=== PATIENT | female | born 1955 | race Caucasian/White ===

== ENCOUNTER 2016-06-19 15:42 | Emergency (ER) | payer BC ==
[2016-06-19 15:49] VITALS: BP 145/95; PULSE 68; TEMP 98.6; BMI 25.5
[2016-06-19] MEDS ORDERED: IBUPROFEN 600 MG TABLET (FP) PO ONE ×2 (16:09→16:12)
--- NOTE | 2016-06-19 16:09 | PDOC ---
History of Present Illness - General Chief Complaint: Pain, Acute Stated Complaint: RIGHT FOOT PAIN Time Seen by Provider: 06/19/16 15:51 - History of Present Illness Initial Comments: 06/19/16 16:21 Chief complaint: Pain right foot History of present illness: Patient inverted right foot approximately one week ago, sustaining injury. There was pain and swelling. She did not seek medical attention. She continued to ambulate. The ankle has not improved so today she went to urgent care. An x-ray was performed, demonstrating a fracture, and she was referred to the emergency room Review of systems: Denies distal numbness tingling pain or weakness. Denies pain or injury to the ankle calf the thigh or hip. Denies any other injuries Past medical history: Healthy female, no current medical problems Social/family history reviewed and noncontributory Physical exam: Alert and oriented well-developed well-nourished no acute distress ambulatory but limping, cheerful and cooperative Right foot shows swelling and tenderness over the fifth metatarsal. There is pain with inversion of the foot. Pulses are full. No distal sensory or motor deficits. No swelling pain or tenderness of the ankle calf or knee. Impression: Fifth metatarsal fracture Plan: X-ray was reviewed from the urgent care center. There is an oblique fracture of the diaphysis of the fifth metatarsal. Minimal displacement. Non- angulated. The x-ray was reviewed with Dr. Langston, orthopedic consult. He agrees to see the patient now in his office for definitive management. The patient is adequately ambulatory and in no severe pain or discomfort upon discharge with family member to be seen by orthopedist now as arranged. Past History - Past Medical History Allergies/Adverse Reactions: Allergies Allergy/AdvReac Type Severity Reaction Status Date / Time No Known Allergies Allergy Verified 06/19/16 15:50 Home Medications: Ambulatory Orders No Home Medications 0 dose .ROUTE UTDICT 07/06/12 Naproxen [EC-Naprosyn] 375 mg PO BID PRN #20 tablet. 06/19/16 Asthma: Yes Suicide Attempt (Hx): No - Psycho/Social/Smoking Cessation Hx Anxiety: No Suicidal Ideation: No Smoking Status: No Smoking History: Former smoker Have you smoked in the past 12 months: No Number of Cigarettes Smoked Daily: 0 Information on smoking cessation initiated: No Hx Alcohol Use: No Drug/Substance Use Hx: No Substance Use Type: None *Physical Exam - Vital Signs Last Vital Signs Temp Pulse Resp BP Pulse Ox 98.6 F 68 18 145/95 97 06/19/16 15:47 06/19/16 15:47 06/19/16 15:47 06/19/16 15:47 06/19/16 15:47 *DC/Admit/Observation/Transfer Diagnosis at time of Disposition: Fracture, foot Qualifiers: Encounter type: initial encounter Fracture type: closed Laterality: right Qualified Code(s): S92.901A - Unspecified fracture of right foot, initial encounter for closed fracture - Discharge Dispostion Disposition: HOME Condition at time of disposition: Stable Admit: No - Prescriptions Prescriptions: Naproxen [EC-Naprosyn] 375 mg PO BID PRN #20 tablet. PRJanneth Reason: Pain - Referrals Referrals: Cecilio Langston MD [Staff Physician] - 06/19/16 - Patient Instructions Additional Instructions: See Dr. Langston now for treatment of your foot fracture in his office as directed.
== END 2016-06-19 16:20 | disposition home or self-care (01) ==
LOC: FER 15:42
DX: S92.354A Nondisplaced fracture of fifth metatarsal bone, right foot, initial encounter for closed fracture (principal); X58.XXXA Exposure to other specified factors, initial encounter; Y93.9 Activity, unspecified; Y92.9 Unspecified place or not applicable; Z87.891 Personal history of nicotine dependence; J45.909 Unspecified asthma, uncomplicated
CPT/HCPCS: 99282-25

== ENCOUNTER 2018-04-02 09:08 | Day surgery (SDC) | payer OTHER ==
[2018-03-29 11:57] VITALS: BMI 24.9
[2018-04-02] MEDS ORDERED: BUPIVACAINE HCL/PF 2.5 MG/ML - 30 ML VIAL IJ ONE (11:34)
[2018-04-02] MEDS ORDERED: MIDAZOLAM HCL 2 MG/2 ML SINGLE DOSE VIAL ONE (11:36)
[2018-04-02] MEDS ORDERED: ONDANSETRON 4 MG/2 ML VIAL ONE ×2 (11:37→13:14)
[2018-04-02] MEDS ORDERED: DEXAMETHASONE SOD PHOSPHATE 4 MG/1 ML VIAL ONE (11:37)
[2018-04-02] MEDS ORDERED: ceFAZolin SODIUM 1 GM VIAL ONE (11:37)
[2018-04-02] MEDS ORDERED: KETOROLAC TROMETHAMINE 30 MG/1 ML VIAL ONE (11:37)
[2018-04-02] MEDS ORDERED: BUPIVACAINE HCL/PF 0.25% (2.5MG/ML) 10 ML VIAL IJ ONE (12:43)
[2018-04-02] MEDS ORDERED: oxyCODONE HCL 5 MG TABLET PO PRN (12:53)
[2018-04-02] MEDS ORDERED: ONDANSETRON 4 MG/2 ML VIAL IVPUSH PRN (12:53)
[2018-04-02 14:09] VITALS: TEMP 97.9
[2018-04-02 14:45] VITALS: BP 146/74; PULSE 72
--- NOTE | 2018-04-04 14:10 | OP ---
DATE OF OPERATION: 04/02/2018 LOCATION: [facility]. SURGEON: Remi Segovia MD COMMUNITY DIRECTOR: MISSY Nolan PREOPERATIVE DIAGNOSES: 1. Right knee medial and lateral meniscal tear. 2. Right knee cartilage injury. 3. Right knee synovitis. POSTOPERATIVE DIAGNOSES: 1. Right knee medial and lateral meniscal tear. 2. Right knee cartilage injury. 3. Right knee synovitis. PROCEDURE: 1. Right knee arthroscopy, partial meniscectomy of lateral meniscus, CPT code 47006. 2. Right knee arthroscopy with chondroplasty and abrasion-plasty, CPT code 56990. 3. Right knee arthroscopy with synovectomy, CPT code 48299. FINDINGS: 1. Medial meniscus body and posterior horn tear. 2. Lateral meniscus body and posterior horn tear. 3. Synovitis, patellofemoral, medial and lateral notch area. 4. Anterior grade 1 to cartilage injury, medial femoral condyle and tibial plateau. 5. ACL and PCL intact. 6. Diffuse grade 1 to 2 cartilage injury, lateral joint. 7. Central grade 2 to 4 cartilage injury, patellofemoral trochlea and the patellofemoral joint. PROCEDURE: Informed consent was obtained. The patient came to the operating room, where the lower extremity was prepped and draped in a sterile fashion. A tourniquet was placed on the upper thigh, but not inflated. Using standard arthroscopic technique, a lateral incision and portal was made to allow for introduction of the camera into the suprapatellar bursa. This was then taken to the medial joint line, where under direct visualization, a medial incision and portal was made. Excessive synovium noted in the medial, lateral and patellofemoral and notch area was removed by an upbiter, shaver and Bovie cautery. This was found to bring in inflammatory tissue into the joint surface, a source of pain and dysfunction. Probing of the medial and lateral meniscus found tears, as described in the findings. These were removed with the upbiter and shaver and taken back to a stable rim. Grade 2 to 3 degenerative changes were treated with a chondroplasty, removing all flaking surfaces with low-setting Bovie along the periphery to prevent further flaking. Grade 4 changes, as noted, were treated with an abrasoplasty, creating a bleeding surface at the bone/cartilage interface. Aggressive debridement with shaver/scott created bleeding surface. Micro fracture also done when indicated in findings. All areas of the knee were once again reexamined. The knee was then drained and a single suture was placed in all portals. A sterile dressing was placed and the patient was transferred to the recovery room without complication. The PA listed above was present and assisted at surgery. Their presence was absolutely medically necessary for the completion of the procedure. They helped hold the arthroscopy, pass instruments (and implants when indicated) and the procedure could not have been completed without their assistance. REMI SEGOVIA M.D. [id number]
== END 2018-04-02 14:45 | disposition home or self-care (01) ==
LOC: FASU 09:08
PROVIDERS: ATTEND Orthopaedic Surgery
PROC: 0SBC4ZZ Excision of Right Knee Joint, Percutaneous Endoscopic Approach (ICD-10-PCS; 2018-04-02)
PROC: 0SBC4ZZ Excision of Right Knee Joint, Percutaneous Endoscopic Approach (ICD-10-PCS; 2018-04-02)
PROC: 0SBC4ZZ Excision of Right Knee Joint, Percutaneous Endoscopic Approach (ICD-10-PCS; principal; 2018-04-02 10:30)
DX: S83.241A Other tear of medial meniscus, current injury, right knee, initial encounter (principal); S83.281A Other tear of lateral meniscus, current injury, right knee, initial encounter; S83.8X1A Sprain of other specified parts of right knee, initial encounter; M65.861 Other synovitis and tenosynovitis, right lower leg; X58.XXXA Exposure to other specified factors, initial encounter; Y93.9 Activity, unspecified; Y92.9 Unspecified place or not applicable
CPT/HCPCS: 94760